=== PATIENT | female | born 1965 | race Caucasian/White ===

== ENCOUNTER 2017-07-22 01:18 | Emergency (ER) | payer OTHER ==
[~2017-07-22] VITALS: Ht 177.8 cm; Wt 77.1 kg
--- NOTE | 2017-07-22 22:34 | EKG ---
[facility] [address] [facility] [place], [place] [address] Signed Normal sinus rhythm Normal ECG No previous ECGs available Confirmed by GLENN JULIAN MD ([id number]) on 07/22/2017 10:34:09 PM Electronically Signed By: GLENN JULIAN MD 07/22/17 2234 PATIENT NAME: ORIONAKASH OLIVIA Electrocardiogram DATE OF : 67 PHYSICIAN: GLENN JULIAN MD REPORT #: [id number] REPORT IS CONFIDENTIAL AND NOT TO BE RELEASED WITHOUT AUTHORIZATION
== END 2017-07-22 04:33 | disposition home or self-care (01) ==
LOC: ED 01:18
DX: R07.89 Other chest pain (principal); Z98.890 Other specified postprocedural states; R11.0 Nausea; R61 Generalized hyperhidrosis
CPT/HCPCS: 71010; 80053; 84484; 85025; 93005; 93010; 96361; 96374; 99284; J7030

== ENCOUNTER 2020-01-08 07:55 | Day surgery (SDC) | payer OTHER ==
[~2020-01-08] VITALS: Ht 177.8 cm; Wt 85.7 kg
--- NOTE | ~2020-01-08 | OR ---
[facility] [address] [place], [place] [address] Draft DATE OF OPERATION: 01/08/2020 SURGEON: Brittany Segura MD PREOPERATIVE DIAGNOSES: 1. Menometrorrhagia. 2. Endometrial polyps. POSTOPERATIVE DIAGNOSES: 1. Menometrorrhagia. 2. Endometrial polyps. 3. Pending pathology. PROCEDURES: 1. Hysteroscopy. 2. Dilation and curettage. 3. Resection of polyps. ANESTHESIA: General LMA. ESTIMATED BLOOD LOSS: Minimal. DRAINS: None. INDICATIONS AND FINDINGS: The patient is a 54-year-old female, 5, para 0, AB 5, who has been having abnormal bleeding for the last 2-3 years. She had an episode of prolonged bleeding, which started on November 09 and continued until November. Unfortunately was not possible. Ultrasound revealed probable endometrial polyps. She is therefore being admitted for further evaluation. At the time of surgery, exam under anesthesia revealed a normal-sized uterus, which was retroverted. The uterus sounded 9 cm. The endometrial cavity revealed multiple polyps. DESCRIPTION OF PROCEDURE: The patient was prepped and draped in the dorsal lithotomy position. A weighted speculum was placed. The anterior lip of the cervix was visualized and grasped with a single-tooth tenaculum. The endometrial cavity was sounded to 9 cm. The endocervical PATIENT NAME: AKASH SEARS OPERATIVE REPORT DATE OF : 67 REPORT #: [id number] PHYSICIAN: BRITTANY SEGURA MD PCP: NO PRIMARY CARE PHYSICIAN REPORT IS CONFIDENTIAL AND NOT TO BE RELEASED WITHOUT AUTHORIZATION [facility] [address] [place], [place] [address] Draft canal was then easily dilated to a #9 dilator. Following this, MyoSure device was placed. The cavity was evaluated. Multiple polyps were seen. The MyoSure Lite was then introduced. The polyps were removed using the MyoSure Lite. There was some difficulty removing the polyps around the right tubal orifice, but otherwise the polyps were easily removed. Following this, the hysteroscope was removed and D and C was done with a small amount of tissue found. Repeat hysteroscopy was done and this completed removal of the polyps, and then the procedure was terminated. The instruments were removed from the vagina. There was no evidence of any ongoing bleeding from the cervix. The procedure was then terminated. She was taken to the recovery room in good condition. Brittany Segura MD PJW/MODL /[id number] Copies: ~ PATIENT NAME: AKASH SEARS OPERATIVE REPORT DATE OF : 67 REPORT #: [id number] PHYSICIAN: BRITTANY SEGURA MD PCP: NO PRIMARY CARE PHYSICIAN REPORT IS CONFIDENTIAL AND NOT TO BE RELEASED WITHOUT AUTHORIZATION
[2020-01-08] MEDS ORDERED: ADVIL200 MG PO (08:03)
--- NOTE | 2020-01-08 10:22 | NUR ---
[facility] OPA IN. PT RESPONDS TO VERBAL STIMULUS AND OPENS MOUTH WHEN ASKED. ORAL AIRWAY REMOVED AT 1020. SATS >90% ON 6 L VIA MASK. PT FALLS BACK ASLEEP. RPORT RECEIVED FROM RESIDENT ASSISTANT AND AFTERSCHOOL.
--- NOTE | 2020-01-08 12:15 | NUR ---
PATIENT APPEARS DROWSY, AWAKE ON AND OFF. PATIENT NOW SITTING UP IN BED, PROVIDED ICE WATER AND CRACKERS AND APPLESCACE. NO COMPLAINTS OF PAIN OR NAUSEA. SCANT AMOUNT OF DRAINAGE ON DARIAN PAD. VSS. NO OTHER NEEDS, DISCUSSED PLAN TO MEET CRITERIA. CALL LIGHT WITHIN REACH.
[2020-01-08] MEDS ORDERED: IBU800 MG PO (12:16)
[2020-01-08] MEDS ORDERED: NORCO 5-325 TA1 EACH PO (12:17)
[2020-01-08] MEDS ORDERED: ZOFRAN8 MG SL (12:21)
--- NOTE | 2020-01-08 12:45 | NUR ---
PATIENT TOLERATED CRACKERS AND APPLESAUCE, NO NAUSEA/VOMITTING. NO COMPLAINTS OF PAIN. TOLERATED AMBULATING TO BATHROOM, VOIDED 500 ML OF BLOOD TINGED URINE. PATIENT STATES " I AM READY TO GO HOME". CALL TO . PATIENT UP GETTING DRESSED.
--- NOTE | 2020-01-08 13:30 | NUR ---
PROVIDED DISCHARGE EDUCATION. ANSWERED QUESTIONS AND CONCERNS. SCRIPT IN PATIENT HAND. PROVIDED WHEELCHAIR RIDE TO FRONT. PATIENT TRANSFERED WELL TO CAR.
--- NOTE | 2020-01-11 14:40 | PATH ---
[facility] [address] [facility] [place] [address] Signed SPECIMEN(S): A ENDOMETRIAL POLYPS CURETTINGS SPECIMEN SOURCE: A. ENDOMETRIAL POLYPS CURETTINGS CLINICAL HISTORY: Menorrhagia, endometrial polyps. FINAL PATHOLOGIC DIAGNOSIS: Endometrium, polyps and curettings, curettage: - Late proliferative/early secretory phase endometrium with simple hyperplasia. - Fragments of benign endometrial polyp(s). - Negative for complex hyperplasia, atypia or malignancy. COMMENT: As part of [employer]' Quality Improvement Program, this case was reviewed by another member of our pathology staff. NAL:NRT:cml:C2NR MICROSCOPIC EXAMINATION: Histologic sections of all submitted blocks are examined by light microscopy. These findings, together with the gross examination, support the pathologic diagnosis. GROSS DESCRIPTION: The specimen, labeled "EB, A.," and designated on the requisition "endometrial polyps and curettings," is received in formalin and consists of krishnamurthy-pink soft tissue fragments with thickened mucus and clot material measuring 5.9 x 4.5 x 0.7 cm in aggregate. Specimen is filtered and entirely submitted in cassettes (A1-A3). AT (under the direct supervision of a pathologist) The Gross Description was prepared using a voice recognition system. The report was reviewed for accuracy; however, sound-alike word errors, addition and/or deletions may occur. If there is any question about this report, please contact Client Services. PERFORMING LABORATORY: The technical component was performed by [employer], [address] [place] [address] (Lumber Salvager: Yazmin Tom MD; CLIA# [id number]). Professional interpretation was performed by PATIENT NAME: AKASH SEARS PATHOLOGY DATE OF : 67 REPORT #: [id number] PHYSICIAN: [facility] PCP: NO PRIMARY CARE PHYSICIAN REPORT IS CONFIDENTIAL AND NOT TO BE RELEASED WITHOUT AUTHORIZATION [facility] [address] [place], [place] [address] Signed [facility], [facility], [address] [address] (CLIA# [id number]). Diagnostician: Danika Bennett MD Pathologist Electronically Signed 01/11/2020 Copies: ~ PATIENT NAME: AKASH SEARS PATHOLOGY DATE OF : 67 REPORT #: [id number] PHYSICIAN: [facility] PCP: NO PRIMARY CARE PHYSICIAN REPORT IS CONFIDENTIAL AND NOT TO BE RELEASED WITHOUT AUTHORIZATION
== END 2020-01-08 13:30 | disposition home or self-care (01) ==
LOC: DS 07:55
PROVIDERS: Obstetrics & Gynecology
PROC: 0UDB8ZZ Extraction of Endometrium, Via Natural or Artificial Opening Endoscopic (ICD-10-PCS; 2020-01-08)
PROC: 0UB98ZZ Excision of Uterus, Via Natural or Artificial Opening Endoscopic (ICD-10-PCS; principal; 2020-01-08 09:00)
DX: N84.0 Polyp of corpus uteri (principal)
CPT/HCPCS: J1100; J1790; J1885; J2250; J2405; J2704; J2765; J3010; J7121

== ENCOUNTER 2025-02-15 12:58 | Emergency (ER) | payer OTHER ==
[~2025-02-15] VITALS: Ht 177.8 cm; Wt 85.7 kg
[~2025-02-15 12:58] MED LIST: ADVIL200 MG PO; CEPHALEXIN500 MG PO; IBU800 MG PO; IBUPROFEN800 MG PO; NORCO 5-325 TA1 EACH PO; ONDANSETRON ODT8 MG PO; PERCOCET 5-3251 EACH PO; ULTRAM50 MG PO; ZOFRAN8 MG SL
--- OUTSIDE RECORDS SUMMARY | 2025-02-15 13:02 | XMS ---
PreManage Notification: AKASH SEARS Security Food Analyst Events No recent Security Events currently on file CRITERIA MET - Group Notification CARE PROVIDERS There are no care providers on record at this time. Jesus has no Care Guidelines for this patient. Arlene VISIT COUNT (12 MO.) 1 [facility] TOTAL 1 NOTE: Visits indicate total known visits. ED/C VISIT TRACKING (12 MO.) 02/15/2025 12:59 [facility] [place] TYPE: Emergency COMPLAINT: - CHEST PAINS INPATIENT VISIT TRACKING (12 MO.) No inpatient visits to display in this time frame [email or web address]
[2025-02-15 13:15] LABS: BASOPHILS 0.4 % (0.1-1.2); EOSINOPHILS 1.5 % (0.7-5.8); HEMATOCRIT 37.8 % (34.1-44.9); HEMOGLOBIN 12.7 g/dL (11.2-15.7); LYMPHOCYTES 37.3 % (19.3-51.7); MCH 31.6 PG (25.6-32.2); MCHC 33.6 g/dL (32.2-35.5); MONOCYTES 7.4 % (4.7-12.5); NEUTROPHILS 53.2 % (34.0-71.1); PLATELET COUNT 287 K/uL (182-369); RBC 4.02 M/uL (3.93-5.22)
[2025-02-15] MEDS ORDERED: ASPIRIN 325 MG TAB PO ONE (13:15)
[2025-02-15 13:26] LABS: INR 0.96 (0.80-1.30); PROTIME 12.4 Sec (11.2-14.2)
[2025-02-15] MEDS ORDERED: ASPIRIN 81 MG CHEW PO ONE (13:30)
[2025-02-15 13:39] LABS: ALBUMIN 3.8 g/dL (3.4-5.0); ALBUMIN/GLOBULIN RATIO 1.06 (1.1-2.4); ALKALINE PHOSPHATASE 47 U/L (46-116); ALT (SGPT) 32 U/L (14-59); ANION GAP 11.7 (7-21); AST (SGOT) 24 U/L (15-37); BILIRUBIN, TOTAL 0.6 mg/dL (0.2-1.0); BUN/CREATININE RATIO 16.21 (6.0-28.6); CALCIUM 9.3 mg/dL (8.5-10.1); CARBON DIOXIDE 30 mmol/L (21-32); CHLORIDE 104 mmol/L (98-107); CREATININE, SERUM 0.74 mg/dL (0.55-1.02); GLOMERULAR FILTRATION RATE,EST 94 mL/min (>60); POTASSIUM 3.7 mmol/L (3.5-5.1); PROTEIN, TOTAL 7.4 g/dL (6.4-8.2); UREA NITROGEN 12 mg/dL (7-18)
[2025-02-15] MEDS ORDERED: LIDOCAINE & ANTACID 35 ML BTL PO ONE (15:00)
[2025-02-15 15:28] VITALS: BP 118/74
--- NOTE | 2025-02-15 21:01 | EKG ---
[facility] [address] [facility] [place] [address] Signed Normal sinus rhythm Nonspecific ST and T wave abnormality Abnormal ECG When compared with ECG of 22-JUL-2017 01:22, Nonspecific T wave abnormality now evident in Inferior leads Nonspecific T wave abnormality now evident in Lateral leads Confirmed by Elie Ureña MD () on 02/15/2025 9:00:53 PM Electronically Signed By: ELIE RUEÑA MD 02/15/252100 PATIENT NAME: ZIYADWEIAKASHMADISON OLIVIA Electrocardiogram DATE OF : 67 PHYSICIAN: ELIE UREÑA MD REPORT #: [id number] REPORT IS CONFIDENTIAL AND NOT TO BE RELEASED WITHOUT AUTHORIZATION
--- NOTE | 2025-02-15 21:02 | EKG ---
[facility] [address] [place] [address] Signed Sinus bradycardia Anterior infarct , age undetermined Abnormal ECG When compared with ECG of 15-FEB-2025 12:58, Nonspecific T wave abnormality no longer evident in Lateral leads Confirmed by Elie Ureña MD () on 02/15/2025 9:02:35 PM Electronically Signed By: ELIE UREÑA MD 02/15/252101 PATIENT NAME: AKASH SEARS Electrocardiogram DATE OF : 67 PHYSICIAN: ELIE UREÑA MD REPORT #: [id number] REPORT IS CONFIDENTIAL AND NOT TO BE RELEASED WITHOUT AUTHORIZATION
== END 2025-02-15 15:29 | disposition home or self-care (01) ==
LOC: ED 12:58
PROVIDERS: Emergency Medicine
DX: R07.89 Other chest pain (principal); Z79.899 Other long term (current) drug therapy
CPT/HCPCS: 36415; 71045; 80053; 83880; 84484; 85025; 85379; 85610; 93005; 93010; 99285-25; A9270